=== PATIENT | female | born 1970 | race Caucasian/White ===

== ENCOUNTER 2017-03-30 16:46 | Emergency (ER) | payer MEDICARE ==
[2017-03-30 17:30] LABS: HEMOGLOBIN 8.4 gm/dl (12.3-15.3)
[2017-03-30 17:55] LABS: BUN/CREATININE RATIO 4 (0-10)
== END 2017-03-31 01:00 ==
LOC: ER1 16:46
PROVIDERS: Student in an Organized Health Care Education/Training Program
DX: D64.9 Anemia, unspecified (principal); K70.10 Alcoholic hepatitis without ascites; K62.5 Hemorrhage of anus and rectum; L40.9 Psoriasis, unspecified; F17.210 Nicotine dependence, cigarettes, uncomplicated
CPT/HCPCS: 36415; 80053; 81001; 82140; 82150; 82248; 82272; 82550; 82553; 83605; 83690; 83874; 84484; 85025; 85610; 85730; 87086; 93005; 96374; 96375; 99285; C9113; J7030

== ENCOUNTER 2017-07-21 11:38 | Inpatient (IN) | payer MEDICARE ==
[~2017-07-21] VITALS: Ht 167.6 cm; Wt 82.6 kg
[2017-07-21 13:22] LABS: RED BLOOD COUNT 4.46 M/UL (4.00-5.10); WHITE BLOOD COUNT 8.2 K/UL (4.5-11.0)
[2017-07-21 14:26] LABS: BUN/CREATININE RATIO 6 (0-10)
[2017-07-21] MEDS ORDERED: LASIX40 MG PO (22:18)
[2017-07-21] MEDS ORDERED: ZOFRAN4 MG PO (22:19)
[2017-07-21] MEDS ORDERED: HYDROCODONE-IB1 EAC3 PO (22:19)
[2017-07-21] MEDS ORDERED: PROTONIX40 MG PO (22:20)
[2017-07-21] MEDS ORDERED: KLOR-CON M2020 MEQ PO (22:20)
[2017-07-21] MEDS ORDERED: ROXICODONE TAB 55 MG PO (22:21)
[2017-07-21] MEDS ORDERED: CARAFATE 1 GM TA1 GM PO (22:21)
[2017-07-21] MEDS ORDERED: ACID REDUCER20 MG PO (22:22)
[2017-07-21] MEDS ORDERED: FLUOXETINE HCL20 MG PO (22:22)
[2017-07-21] MEDS ORDERED: CONSTULOSE10 GM/15 M PO (22:23)
[2017-07-21] MEDS ORDERED: DESYREL 50 MG T50 MG PO (22:33)
[2017-07-21] MEDS ORDERED: ZANTAC150 MG PO (22:34)
[2017-07-22 06:11] LABS: HEMOGLOBIN 9.5 gm/dl (12.3-15.3)
[2017-07-22 06:34] LABS: BUN/CREATININE RATIO 7 (0-10)
[2017-07-22 06:43] LABS: RED BLOOD COUNT 3.88 M/UL (4.00-5.10); WHITE BLOOD COUNT 5.3 K/UL (4.5-11.0)
[2017-07-22 17:23] LABS: BODY FLUID SOURCE PERITONEAL
[2017-07-23 07:25] LABS: HEMOGLOBIN 9.9 gm/dl (12.3-15.3); RED BLOOD COUNT 4.02 M/UL (4.00-5.10); WHITE BLOOD COUNT 5.4 K/UL (4.5-11.0)
[2017-07-23 07:29] LABS: BUN/CREATININE RATIO 7 (0-10)
[2017-07-24 04:30] LABS: HEMOGLOBIN 9.1 gm/dl (12.3-15.3); RED BLOOD COUNT 3.75 M/UL (4.00-5.10); WHITE BLOOD COUNT 4.7 K/UL (4.5-11.0)
[2017-07-24 04:51] LABS: BUN/CREATININE RATIO 6 (0-10)
[2017-07-25 04:41] LABS: HEMOGLOBIN 9.9 gm/dl (12.3-15.3); RED BLOOD COUNT 4.04 M/UL (4.00-5.10)
[2017-07-25 04:43] LABS: WHITE BLOOD COUNT 6.4 K/UL (4.5-11.0)
[2017-07-25 04:56] LABS: BUN/CREATININE RATIO 6 (0-10)
[2017-07-25] MEDS ORDERED: ALDACTONE100 MG PO (14:05)
== END 2017-07-25 14:53 | disposition home or self-care (01) | DRG 433 ==
LOC: ER1 11:38 → ZEROF 18:06 → MED SURG 4 18:06
PROVIDERS: Physician Assistant; ADMIT Internal Medicine Infectious Disease
PROC: 0W9G3ZZ Drainage of Peritoneal Cavity, Percutaneous Approach (ICD-10-PCS; principal; 2017-07-22)
DX: K70.31 Alcoholic cirrhosis of liver with ascites (principal); E87.3 Alkalosis; E87.6 Hypokalemia; K21.9 Gastro-esophageal reflux disease without esophagitis; R11.2 Nausea with vomiting, unspecified; D64.9 Anemia, unspecified; N30.90 Cystitis, unspecified without hematuria; R19.7 Diarrhea, unspecified; F32.9 Major depressive disorder, single episode, unspecified; K72.90 Hepatic failure, unspecified without coma; F41.9 Anxiety disorder, unspecified; E80.6 Other disorders of bilirubin metabolism; F10.21 Alcohol dependence, in remission; Z87.891 Personal history of nicotine dependence; Z91.19 Patient's noncompliance with other medical treatment and regimen; Z98.84 Bariatric surgery status
CPT/HCPCS: 36415; 80048; 80053; 81001; 82140; 82607; 83690; 83735; 84132; 85025; 85027; 85610; 87040; 87086; 87205; 89051; 93005; C1729; J1885; J2270; J2405; J3480